=== PATIENT | female | born 1970 | race Caucasian/White ===

== ENCOUNTER 2016-07-19 21:45 | Emergency (ER) | payer OTHER ==
[~2016-07-19] VITALS: Ht 167.6 cm; Wt 135.2 kg
[2016-07-19 21:49] VITALS: TEMP 36.4; Ht 167.6 cm; Wt 135.2 kg
[2016-07-19] MEDS ORDERED: ASPIRIN 81 MG CHEW PO STA (22:07)
[2016-07-19 22:33] LABS: BASO % 0.1 %; BASO ABS # 0.01 K/uL (0-0.2); COMPLETE YES; EOS % 1.6 %; HEMATOCRIT 38.2 % (37-47); IG% 0.2 %; LYMPH % 25.7 %; LYMPH ABS # 2.72 K/uL (1.2-3.4); MEAN CELL VOLUME 88.8 fL (80-100); MEAN CORPUSCULAR HEMOGLOBIN 30.7 pg (25-34); MEAN CORPUSCULAR HGB CONC 34.6 g/dl (32-36); MONO % 6.4 %; PLATELET COUNT 274 K/uL (130-400); WHITE BLOOD COUNT 10.59 K/uL (4.8-10.8)
--- NOTE | 2016-07-19 22:48 | DIAGNOSTIC IMAGING REPORT ---
CHEST ONE VIEW PORTABLE HISTORY: Atypical Chest Pain COMPARISON: None. FINDINGS: Slightly rotated study. The lungs appear clear. No pleural effusions. No pneumothorax. No evidence for pulmonary edema. The cardiac silhouette is mildly enlarged. IMPRESSION: Mild cardiomegaly. Electronically signed by: Jermaine Cruz M.D. 07/19/2016 10:46 PM Dictated Date/Time: 07/19/2016 10:45 PM
[2016-07-19 22:51] LABS: BLOOD UREA NITROGEN 11 mg/dl (7-18); BUN/CREATININE RATIO 12.7 (10-20); CALCIUM 9.2 mg/dl (8.5-10.1); CARBON DIOXIDE 26 mmol/L (21-32); CHLORIDE 107 mmol/L (98-107); CREATININE 0.89 mg/dl (0.60-1.20); GLUCOSE 81 mg/dl (70-99); POTASSIUM 3.9 mmol/L (3.5-5.1); SODIUM 141 mmol/L (136-145)
[2016-07-19 22:55] VITALS: BP 149/99; O2SAT 96
[2016-07-19 22:56] LABS: CKMB/CK RATIO 0.8 (0-3.0)
[2016-07-19] MEDS ORDERED: GI COCKTAIL PO STA (23:19)
[2016-07-19] MEDS ORDERED: KETOROLAC TROMETHAMINE 30 MG/ML VIAL IV STA (23:50)
[2016-07-19] MEDS ORDERED: ALUMINUM/MAGNESIUM SUSP 30 ML UDC ONE (23:58)
[2016-07-19] MEDS ORDERED: LIDOCAINE HCL 2% VISC SOLN 20 ML UDC ONE (23:59)
[2016-07-20] MEDS ORDERED: MoRPHine SULFATE 4 MG/ML 1 ML CARP\\VIAL IV STA (00:16)
[2016-07-20 00:30] VITALS: PULSE 68
--- NOTE | 2016-07-20 01:25 | EMERGENCY ROOM VISIT NOTE ---
History Report prepared by Maite: Rome Mejias Under the Supervision of: Dr. Lio Iyer D.O. First contact with patient: 21:52 Chief Complaint: CHEST PAIN Stated Complaint: CHEST PAIN Nursing Triage Summary: patient reports having chest pain that started this afternoon and it radiated down her left arm, patient denies SOB and nausea at this time. History of Present Illness The patient is a 46 year old female who presents to the Emergency Room with complaints of persistent left sided burning chest pain that began this afternoon. The patient rates her pain a 3/10 in severity. The symptoms started at 1:00 today. They have been intermittently waxing and waning but have never resolved. She states that her pain is not as bad as it was earlier. Her pain is radiating down her left arm to her fingers. Nothing that the patient does changes her pain at all. Pain is not worsened with exertion or movement. Does not change with eating or drinking. There is no associated diaphoresis. Patient has no shortness of breath with this. The patient denies any shortness of breath, nausea, vomiting, melena, hematochezia, diarrhea, or urinary symptoms. She denies any recent travel, hemoptysis, swelling of lower extremities, history of DVTs, history of cancer, long trips. She did not take any Aspirin today. She denies any history of hypertension, hyperlipidemia, CAD , diabetes, sudden within the family at a young age but does admit to smoking. She does have a history of family heart disease. Source of History: patient Onset: this afternoon Position: chest (left) Symptom Intensity: 3/10 Quality: burning Timing: intermittent Associated Symptoms: No SOB, No diarrhea, No hematochezia, No melena, No nausea, No urinary symptoms, No vomiting Note: She has associated left arm pain. She denies any coughing up blood or lower extremity edema. Review of Systems See HPI for pertinent positives & negatives. A total of 10 systems reviewed and were otherwise negative. Past Medical & Surgical Medical Problems: (1) No Known Active Medical Problems Family History FH: heart disease Social History Smoking Status: Current Every Day Smoker Drug Use: none Marital Status: in relationship Occupation Status: employed Current/Historical Medications No Active Prescriptions or Reported Meds Allergies Coded Allergies: No Known Allergies (Unverified , 07/19/16) Physical Exam Vital Signs Date Time Temp Pulse Resp B/P Pulse Ox O2 Delivery O2 Flow Rate FiO2 07/20/16 00:30 68 22 07/20/16 00:00 62 35 07/19/16 23:30 63 24 07/19/16 23:00 70 23 07/19/16 22:55 67 18 149/99 96 Room Air 07/19/16 22:23 73 07/19/16 21:51 97 Room Air 07/19/16 21:49 36.4 78 21 173/106 98 Room Air Physical Exam GENERAL: alert, anxious appearing, well nourished, no distress, non-toxic, tearful, sitting up in bed EYE EXAM: Injected conjunctiva OROPHARYNX: no exudate, no erythema, lips, buccal mucosa, and tongue normal and mucous membranes are moist NECK: supple, no nuchal rigidity, no adenopathy, non-tender CHEST: pain on palpation of left chest wall LUNGS: Clear to auscultation. Normal chest wall mechanics HEART: no murmurs, S1 normal and S2 normal ABDOMEN: abdomen soft, non-tender, normo-active bowel sounds, no palpable pulsatile masses, no rebound or guarding. BACK: Back is symmetrical on inspection and there is no deformity, no midline tenderness, no CVA tenderness. SKIN: no rashes and no bruising UPPER EXTREMITIES: upper extremities are grossly normal. Radial pulses are equal bilateral LOWER EXTREMITIES: Equal bilateral with mild pitting edema. NEURO EXAM: Normal sensorium, cranial nerves II-XII grossly intact, normal speech, no gross weakness of arms, no gross weakness of legs. Medical Decision & Procedures ER Provider Diagnostic Interpretation: Radiology results have been interpreted by the radiologist and reviewed by me. CHEST ONE VIEW PORTABLE HISTORY: Atypical Chest Pain COMPARISON: None. FINDINGS: Slightly rotated study. The lungs appear clear. No pleural effusions. No pneumothorax. No evidence for pulmonary edema. The cardiac silhouette is mildly enlarged. IMPRESSION: Mild cardiomegaly. Electronically signed by: Jermaine Cruz M.D. 07/19/2016 10:46 PM Dictated Date/Time: 07/19/2016 10:45 PM Laboratory Results 07/19/16 22:10 Red Blood Count 4.30, Mean Corpuscular Volume 88.8, Mean Corpuscular Hemoglobin 30.7, Mean Corpuscular Hemoglobin Concent 34.6, Mean Platelet Volume 11.0, Neutrophils (%) (Auto) 66.0, Lymphocytes (%) (Auto) 25.7, Monocytes (%) (Auto) 6.4, Eosinophils (%) (Auto) 1.6, Basophils (%) (Auto) 0.1, Neutrophils # (Auto) 6.99, Lymphocytes # (Auto) 2.72, Monocytes # (Auto) 0.68, Eosinophils # (Auto) 0.17, Basophils # (Auto) 0.01 07/19/16 22:10 Test 07/19/16 22:10 07/20/16 00:10 White Blood Count 10.59 K/uL (4.8-10.8) Red Blood Count 4.30 M/uL (4.2-5.4) Hemoglobin 13.2 g/dL (12.0-16.0) Hematocrit 38.2 % (37-47) Mean Corpuscular Volume 88.8 fL (80-100) Mean Corpuscular Hemoglobin 30.7 pg (25-34) Mean Corpuscular Hemoglobin Concent 34.6 g/dl (32-36) Platelet Count 274 K/uL (130-400) Mean Platelet Volume 11.0 fL (7.4-10.4) Neutrophils (%) (Auto) 66.0 % Lymphocytes (%) (Auto) 25.7 % Monocytes (%) (Auto) 6.4 % Eosinophils (%) (Auto) 1.6 % Basophils (%) (Auto) 0.1 % Neutrophils # (Auto) 6.99 K/uL (1.4-6.5) Lymphocytes # (Auto) 2.72 K/uL (1.2-3.4) Monocytes # (Auto) 0.68 K/uL (0.11-0.59) Eosinophils # (Auto) 0.17 K/uL (0-0.5) Basophils # (Auto) 0.01 K/uL (0-0.2) RDW Standard Deviation 40.4 fL (36.4-46.3) RDW Coefficient of Variation 12.6 % (11.5-14.5) Immature Granulocyte % (Auto) 0.2 % Immature Granulocyte # (Auto) 0.02 K/uL (0.00-0.02) D-Dimer 380 ug/L FEU (0-500) Anion Gap 8.0 mmol/L (3-11) Est Creatinine Clear Calc Drug Dose 114.1 ml/min Estimated GFR () 91.4 Estimated GFR (Non- 78.8 BUN/Creatinine Ratio 12.7 (10-20) Calcium Level 9.2 mg/dl (8.5-10.1) Total Creatine Kinase 73 U/L (26-192) Creatine Kinase MB 0.6 ng/ml (0.5-3.6) Creatine Kinase MB Ratio 0.8 (0-3.0) Troponin I < 0.015 ng/ml (0-0.045) Laboratory results per my review. Medications Administered Medications (Trade) Dose Ordered Sig/Taz Route Start Time Stop Time Status Last Admin Dose Admin Aspirin (Aspirin Chew) 324 mg NOW STAT PO 07/19/16 22:07 07/19/16 22:08 DC 07/19/16 22:17 324 MG Ketorolac Tromethamine (Toradol Inj) 30 mg NOW STAT IV 07/19/16 23:50 07/19/16 23:51 DC 07/20/16 00:03 30 MG Al Hydroxide/Mg Hydroxide (Maalox Susp) 30 ml STK-MED ONCE .ROUTE 07/19/16 23:58 07/20/16 00:00 DC 07/20/16 00:02 30 ML Lidocaine HCl (Viscous Lidocaine 2% Soln) 20 ml STK-MED ONCE .ROUTE 07/19/16 23:59 07/20/16 00:00 DC 07/20/16 00:02 20 ML Morphine Sulfate (MoRPHine SULFATE INJ) 4 mg NOW STAT IV 07/20/16 00:16 07/20/16 00:18 DC 07/20/16 00:33 4 MG ECG Indication: chest pain Rate (beats per minute): 74 Rhythm: sinus rhythm Findings: no ectopy, other (normal axis) ED Course ED COURSE: Vital signs were reviewed and showed hypertension. The patients medical record was reviewed The above diagnostic studies were performed and reviewed. ED treatments and interventions as stated above. 2151: The patient was evaluated in room B10. A complete history and physical examination was performed. 2206: Aspirin 324 mg PO 2319: Gi Cocktail 30 ml PO 2350: Toradol Inj 30 mg IV 2358: Maalox Susp 30 ml .ROUTE 235: Lidocaine HCl 20 ml .ROUTE 001: Morphine Sulfate 4 mg IV 0026: I reassessed the patient at this time. Her chest pain has improved with the Toradol. 0052: Upon reevaluation, the patient is resting. I discussed my findings with the patient and she understands and agrees with the treatment plan. The patient remained stable while under my care. The patient appeared well at the time of discharge. Medical Decision Differential diagnoses includes but is not limited to acute coronary syndrome, myocardial infarction, pericarditis, pulmonary embolus, aortic dissection, pneumonia, pneumothorax, musculoskeletal, shingles, esophageal. Patient is a 46-year-old female who presents the ER with left-sided chest pain with radiation down the left arm which started at 1 PM today. She denies any associated shortness of breath, exertional symptoms, diaphoresis or previous chest pain with exertion. Cardiac risk factors include smoking and obesity. Initial troponin was obtained following 8 hours from the onset of her chest pain. This was negative. EKG was negative. There is no signs of ischemia. Chest x-ray was unremarkable. Repeat troponin was obtained 2 hours following the initial as her symptoms did wax and wane but never resolved. Repeat troponin was again negative. Based on the heart score explained to the patient that she has about a 1%-2% risk of cardiac event. She was given aspirin and Toradol. Her pain improved significant following Toradol. There was a partial muscle skeletal component on exam which the patient initially said felt exactly like her pain then she noted felt different. D-dimer was negative. Did not pursue PE further. Vitals are stable. Following the negative troponin and her low risk I discussed with the patient following up as an outpatient. She didn' t feel comfortable with this. Since she did not have a PCP and discussed with our lawn care specialist Dolly along with patient and requested dolly to find her a PCP to have follow-up within next 48 hours. Any worsening of her symptoms should start to return to the ER if her symptoms return she should then return to the ER she has not been evaluated by her PCP. I explained at length that this is a risk stratification on that with a heart score she is a low risk but must follow up as an outpatient because she does have risk factors. Stressed the importance of having her follow-up with her PCP. Discussed with Pt concerning signs and symptoms to watch out for. Pt was instructed to follow up with their PCP and discussed with the patient their option to return to the ED at anytime for persistent or worsening symptoms. The appropriate anticipatory guidance and out-patient management, including indications for return to the emergency department, were explained at length to the patient and understood. Impression Primary Impression: Precordial chest pain Scribe Attestation The scribe's documentation has been prepared under my direction and personally reviewed by me in its entirety. I confirm that the note above accurately reflects all work, treatment, procedures, and medical decision making performed by me. Departure Information Dispostion Home / Self-Care Prescriptions No Active Prescriptions or Reported Meds Referrals No Doctor, Assigned (PCP) Forms HOME CARE DOCUMENTATION FORM, IMPORTANT VISIT INFORMATION Patient Instructions A Signature Page, My [facility] Additional Instructions Please follow up with your primary care doctor with in the next 24 hours. Any worsening of your symptoms, please return to the ED immediately. This includes any worsening of her chest pain, shortness of breath, passing out, exertional chest pain or any other concerning signs or symptoms from your standpoint. As stated above you must follow up with your primary care doctor next 24 hours for further evaluation of your chest pain. Please do not drive, work, operate heavy machinery for the next 12 hours with the medications you were given in the ER.
== END 2016-07-20 01:13 | disposition home or self-care (01) ==
LOC: C.EDB 21:47
DX: R07.2 Precordial pain (principal); E66.9 Obesity, unspecified; Z68.42 Body mass index [BMI] 45.0-49.9, adult; F17.200 Nicotine dependence, unspecified, uncomplicated; Z82.49 Family history of ischemic heart disease and other diseases of the circulatory system